=== PATIENT | male | born 2000 | race American Indian/Alaskan Native ===

== ENCOUNTER 2021-02-10 01:54 | Emergency (ER) | payer SELFPAY ==
--- NOTE | 2021-02-10 03:35 | Emergency Department Report ---
- General Stated Complaint: SORE THROAT;VOMITING BLOOD Time Seen by Provider: 02/10/21 03:30 - History of Present Illness Initial Comments: 20-year-old male visit emerge department complaining of a 3-day history of progressive worsening sore throat. Symptoms are associated with rhinitis. But no ear pain, no fever, chills, sweats but no hemoptysis no hematemesis hematochezia. Reports no chest pain or palpitation. No nausea, no vomiting, no abdominal pain, no diarrhea. MD Complaint: sore throat, rhinorrhea, nasal congestion -: Sudden Severity: mild, moderate Quality: dull Consistency: constant Improves With: nothing Worsens With: nothing Associated Symptoms: nasal congestion, sore throat. denies: chills, myalgias, diaphoresis, chest pain, weight loss, hoarseness - Related Data Previous Rx's Medication Instructions Recorded Last Taken Type Amoxicillin [Amoxicillin TAB] 875 mg PO BID #20 tablet 02/10/21 Unknown Rx Chlorhexidine Mouthwash [Peridex] 15 ml MM BID #1 bottle 02/10/21 Unknown Rx Lidocaine Viscous 2% 5 ml MM Q3H PRN #120 udc 02/10/21 Unknown Rx ED Review of Systems ROS: Stated complaint: SORE THROAT;VOMITING BLOOD Other details as noted in HPI Comment: All other systems reviewed and negative ED Past Medical Hx - Medications Home Medications: Home Medications Medication Instructions Recorded Confirmed Last Taken Type Amoxicillin [Amoxicillin TAB] 875 mg PO BID #20 tablet 02/10/21 Unknown Rx Chlorhexidine Mouthwash [Peridex] 15 ml MM BID #1 bottle 02/10/21 Unknown Rx Lidocaine Viscous 2% 5 ml MM Q3H PRN #120 udc 02/10/21 Unknown Rx ED Physical Exam - General General appearance: alert, in no apparent distress - Head Head exam: Present: atraumatic, normocephalic - Eye Eye exam: Present: normal appearance - ENT ENT exam: Present: mucous membranes moist, other (Pharynx has some erythema but no exudate. Tongue and uvula are midline.) - Neck Neck exam: Present: normal inspection, lymphadenopathy (Lymphadenopathy is noted with tenderness to the right tonsillar region.) - Respiratory Respiratory exam: Present: normal lung sounds bilaterally. Absent: respiratory distress - Cardiovascular Cardiovascular Exam: Present: regular rate, normal rhythm. Absent: systolic murmur, diastolic murmur, rubs, gallop - GI/Abdominal GI/Abdominal exam: Present: soft, normal bowel sounds - Rectal Rectal exam: Present: deferred - Extremities Exam Extremities exam: Present: normal inspection - Back Exam Back exam: Present: normal inspection - Neurological Exam Neurological exam: Present: alert, oriented X3 - Psychiatric Psychiatric exam: Present: normal affect, normal mood - Skin Skin exam: Present: warm, dry, intact, normal color. Absent: rash ED Medical Decision Making - Medical Decision Making 20-year-old male with no history of any compromised nontoxic appearance patient is euvolemic with no trismus no airway compromise unable to tolerate p.o. given history and examination low suspicion for this presentation being caused by peritonsillar abscess, Shar, bacterial tracheitis, acute HIV, epiglottitis, retropharyngeal abscess. His vital signs are noncapturing but he is afebrile with a temperature of 98.7 heart rate 59 respiratory rate 18 blood pressure 120/64 saturation of 1% on room air Critical care attestation.: If time is entered above; I have spent that time in minutes in the direct care of this critically ill patient, excluding procedure time. ED Disposition Clinical Impression: Sore throat Disposition: [id number] TO HOME OR SELFCARE Is pt being admited?: No Does the pt Need Aspirin: No Condition: Stable Instructions: Viral Respiratory Infection, [id number], Strep Throat, Adult, [id number] Referrals: [facility]IMARY [facility] [Primary Care Provider] - 3-5 Days [facility] [Provider Group] - 3-5 Days
[2021-02-10 03:46] VITALS: BP 120/64
== END 2021-02-10 03:48 | disposition home or self-care (01) ==
LOC: ED 01:54
DX: J02.9 Acute pharyngitis, unspecified (principal); Z79.899 Other long term (current) drug therapy
CPT/HCPCS: 99282